=== PATIENT | female | born 1985 | race African-American/Black ===

== ENCOUNTER 2017-02-16 12:53 | Emergency (ER) | payer OTHER ==
[~2017-02-16] VITALS: Ht 154.9 cm; Wt 74.0 kg
[2017-02-16] MEDS ORDERED: NAPROSYN500 MG PO (13:46)
[2017-02-16] MEDS ORDERED: FLEXERIL10 MG PO (13:46)
[2017-02-16 14:10] VITALS: BP 115/76
== END 2017-02-16 14:33 | disposition home or self-care (01) ==
LOC: EME 12:53
DX: M54.2 Cervicalgia (principal); V49.10XA Passenger injured in collision with unspecified motor vehicles in nontraffic accident, initial encounter; Z91.041 Radiographic dye allergy status; F17.200 Nicotine dependence, unspecified, uncomplicated
CPT/HCPCS: 99281; 99284